=== PATIENT | female | born 2000 | race Caucasian/White ===

== ENCOUNTER 2024-12-31 07:43 | Inpatient (IN) ==
[2024-12-31] MEDS ORDERED: LIDOCAINE 1% LOCAL 20 ML VIAL INFIL PRN (07:52)
--- NOTE | 2024-12-31 08:18 | History & Physical Report ---
Date of Service December 31, 2024 Assessment & Plan (1) Encounter for induction of labor: Plan: Patient is currently stable. Will order Pitocin to induce labor. Will then AROM. Expecting vaginal delivery. Heart Assessment is Cat. 1. Will continue to monitor. Admission and Anticipated Discharge Date Admission Date: December 31, 2024 History of Present Illness Chief Complaint: Induction of Labor Primary Care Provider: [place] PCP 24 yo at 40w5d admitted for IOL for postdates. Patient had a Hall placed in by Dr. Beal on 12/30. Hall was taken out. Patient admits to contractions happening at irregular intervals, and to movement. Patient admits that a mucus plug came out when the Hall came out. Patient reports she had regular care. Patient denies any fluid loss. Denies fevers/chills/sweats, Headache, Vision changes, CP, SOB, LE pain, breast pain, dysuria. GBS neg, RH+ and Delivery Plans *Hepatitis B not immune renal pyelectasis, mild--resolved by 28 weeks. Labs Lab Results OB Labs: Blood Type A Positive 06/19/24 Antibody Screen NEGATIVE 06/19/24 Hgb 11.5 g/dl (12.0-16.0) L 10/08/24 Hct 34.4 % (37.0-47.0) L 10/08/24 MCV 90.0 fL (80.0-100.0) 06/19/24 Plt Count 197 K/uL (130-400) 06/19/24 Rubella IgG Antibody Immune (Immune) 06/19/24 Treponema pallidum Ab Negative (Negative) 10/08/24 Hep Bs Antigen Negative (Negative) 06/19/24 Hepatitis C Antibody Negative (Negative) 06/19/24 HIV 1&2 Ab/P24 Ag 4thGn Negative (Negative) 06/19/24 Glucose 1 Hr 50 gm 100 mg/dl (70-130) 10/08/24 Maternal Serum AFP 32.0 ng/mL 07/16/24 OB Optional Labs: Chlamydia trachomatis RNA Not Detected (NotDetected) 06/19/24 Neisseria gonorrhoeae RNA Not Detected (NotDetected) 06/19/24 Alpha Fetoprotein Triple Screen SEE NOTE 07/16/24 Labs Reviewed: Horizon 14-negative--mln cfdna-low risk--mln Allergies Allergy/AdvReac Type Severity Reaction Status Date / Time amoxicillin Allergy Mild Rash Verified 12/28/24 09:09 Home Medications Medication Instructions Recorded Confirmed Type prenat.vits,wendy,xtj-jcea-swdac 1 tab PO DAILY 06/14/24 12/30/24 History Patient History Surgical History (Updated 06/14/24 @ 09:59 by Meri Munoz) S/P tonsillectomy Family History (Updated 06/14/24 @ 09:55 by Meri Munoz) Other Diabetes Heart disease Pancreatic cancer Skin cancer Social History (Updated 06/14/24 @ 09:56 by Meri Munoz) Smoking Status: Never smoker Do You Dip or Chew Tobacco: No; Hx Alcohol Use: No Hx Substance Use: No marital status: marital status details: Chris (26) [phone] Current Living Situation: Spouse Current Living Situation Comment: lives with spouse, 1 dog. current occupational status: employed current occupation: Pharmacist Feels Safe at Home: Yes OB History 1st [employer] History non contributory Review of Systems as per subjective HPI Physical Exam Constitutional: WD/WN, vitals as above Respiratory: normal respiratory effort, lungs clear to auscultation Cardiovascular: Rate/Rhythm: regular rate and regular rhythm Heart Sounds: normal S1 and normal S2; no murmur Extremities: + edema (very trace L. ankle edema ); no calf tenderness Gastrointestinal (Abdomen): Percussion/Palpation: abdomen soft; abdomen nontender Skin: no rashes, warm and dry Psychiatric: Eye Contact: good eye contact Speech: normal rate/rhythm/volume of speech Thought Process: linear/logical thought process Genitourinary: cervix exam per Dr. Wang and Dr. Zacarias Results & Data Vital Signs (Past 12 Hours) Vital Signs Temp Pulse Resp BP 12/31/24 07:52 36.6 C 78 18 118/71 Monitoring External Monitor Baseline: 135 Variability: Moderate Accels: Absent Early Decels: No Variable Decels: No Late Decels: No Tocodynamometer Contractions are mild and irregular
[2024-12-31] MEDS: LACTATED RINGER'S 1,000 ML IV PRN (08:20)
[2024-12-31] MEDS: OXYTOCIN 30 UNITS/NSS 30 UNITS/500 ML BAG IV PRN ×2 (08:29→14:09)
[2024-12-31 08:37] LABS: Hematocrit (blood only) 35.4 % (37.0-47.0); Hemoglobin 11.9 g/dl (12.0-16.0); Mean Corpuscular Hemoglobin 29.8 pg (25.0-34.0); Mean Corpuscular Volume 88.7 fL (80.0-100.0); Platelet Count 178 K/uL (130-400); RDW Standard Deviation 41.7 fL (36.4-46.3); Red Blood Count 3.99 M/uL (4.20-5.40); White Blood Count 11.38 K/ul (4.8-10.8)
[2024-12-31] MEDS ORDERED: diphenhydrAMINE 50 MG/ML VIAL IV PRN (10:21)
[2024-12-31] MEDS ORDERED: fentANYL 2 MCG/ML BUPIVacaine 0.125%-NSS 100ML BAG EPI PRN (10:21)
[2024-12-31] MEDS ORDERED: NALBUPHINE HCL INJ 10 MG/ML AMP IV PRN (10:21)
[2024-12-31] MEDS ORDERED: LIDOCAINE 2% MPF LOCAL 5 ML VIAL EPI PRN (10:21)
[2024-12-31] MEDS ORDERED: NALOXONE HCL 1 MG in SODIUM CHLORIDE 0.9% 1,000 ML IV PRN (10:21)
[2024-12-31] MEDS ORDERED: ROPIVACAINE 0.5% PF 5 MG/ML 20 ML VIAL EPI PRN (10:21)
[2024-12-31] MEDS ORDERED: SODIUM CHLORIDE 0.9% PF INJ 10 ML VIAL EPI PRN (10:21)
[2024-12-31] MEDS ORDERED: NALOXONE HCL 0.4 MG/1 ML VIAL/CARP IV PRN (10:21)
[2024-12-31] MEDS ORDERED: BUPIVACAINE 0.25% PF 30 ML VIAL EPI PRN (10:21)
[2024-12-31] MEDS ORDERED: ONDANSETRON INJ 2 MG/ML 2 ML VIAL IV PRN (10:21)
--- NOTE | 2024-12-31 10:24 | Anesthesiology Consultation ---
Date of Service December 31, 2024 Assessment & Plan ASA ASA2 Proposed Anesthesia Anesthesia Type: Labor Epidural Risk / Benefits Reviewed With: PT / POA / Parent / Guardian, Accepts Plan and Informed Consent Obtained History Height/Weight Height: 5 ft 5 in Weight: 76.657 kg Allergies Allergy/AdvReac Type Severity Reaction Status Date / Time amoxicillin Allergy Mild Rash Verified 12/28/24 09:09 Medications Home Medications Medication Instructions Recorded Confirmed Last Taken prenat.vits,wendy,cek-bctr-bfrbj 1 tab PO DAILY 06/14/24 12/31/24 12/30/24 08:30 Active Medications Generic Name Dose Route Start Last Admin Trade Name Freq PRN Reason Stop Dose Admin Oxytocin 30 units in 500 mls @ 6 mls/hr 12/31/24 07:52 12/31/24 09:40 Pitocin 30 Units/Nss IV 01/03/25 07:51 0.36 units/hr .Q24H PRN 6 mls/hr Labor Induction/Augmentation Titration Protocol 0.36 UNITS/HR Lactated Ringer's 1,000 mls @ 125 mls/hr 12/31/24 07:52 12/31/24 10:10 Lr IV 01/02/25 07:51 999 mls/hr .Q8H PRN Infusion L&D Protocol Protocol Exercise / Class Metabolic Activity II 4-5 Yardwork/Stairs/Walk up hill Past Family History Family History Other Diabetes Heart disease Pancreatic cancer Skin cancer Past Surgical History Surgical History S/P tonsillectomy Past Anesthesia History No Hx of Anesthesia Complications and No Family Hx of Anesthesia Complications History of PONV No Hx of PONV and No Hx of Motion Sickness Social History Smoking Status: Never smoker Do You Dip or Chew Tobacco: No Hx Alcohol Use: No Hx Substance Use: No substance use type: does not use Review of Systems denies fever/cough/ colds/ chest pain/ SOB/ ROULA denies ROULA Physical Exam Vital Signs Last Vital Signs Temp 36.6 C 12/31/24 08:36 Pulse 60 12/31/24 10:04 Resp 18 12/31/24 08:36 BP 129/80 12/31/24 10:04 O2 Del Method Room Air 12/31/24 08:36 ENMT Mouth: no TMJ abnormality and no dentition abnormality Thyromental Distance: > or= 3.5 Finger Breadths Mallampati Class: II Neck neck extension not limited Respiratory normal respiratory effort; no respiratory distress Auscultation: lungs clear to auscultation bilaterally Cardiovascular Rate/Rhythm: regular rate and regular rhythm Neurologic moves all extremities Psychiatric Orientation: alert and oriented x 3 Testing Laboratory Results 12/31/24 08:17
[2024-12-31] MEDS: BUPIVACAINE 0.25% PF 30 ML VIAL ONE (10:51)
[2024-12-31] MEDS: fentANYL 2 MCG/ML BUPIVacaine 0.125%-NSS 100ML BAG ONE (10:51)
[2024-12-31] MEDS: LIDOCAINE 2%/EPINEPHRINE 1:200,000 20 ML PF ONE (10:51)
[2024-12-31] MEDS: SODIUM CHLORIDE 0.9% PF INJ 10 ML VIAL EPI STA (10:54)
[2024-12-31] MEDS: BUPIVACAINE 0.25% PF 30 ML VIAL EPI STA (10:54)
[2024-12-31] MEDS: LIDOCAINE 2%/EPINEPHRINE 1:200,000 20 ML PF EPI STA (10:54)
--- NOTE | 2024-12-31 13:54 | Delivery Summary ---
Vaginal Delivery Summary Date of Service December 31, 2024 Vaginal Delivery Summary VAVD Vacuum-assisted vaginal delivery for deep prolonged variable decelerations the patient had been induced with Pitocin and received epidural artificial rupture membranes as she progressed quickly to fully dilated however deep variable decelerations started to appear especially with pushing Pitocin was stopped oxygen was given to the patient. Reviewed the tracing discussed with the patient recommended vacuum as it was +2 station occiput anterior position and I did not think the baby would tolerate prolonged deep variable decelerations Bladder had just been drained by nursing for 75 cc Kiwi vacuum applied to the baby's head over 1 contraction and no pop offs the baby's head was delivered a small midline episiotomy was made to facilitate delivery once the head was delivered arm then flopped out this was not a compound presentation there was a loose nuchal cord which was passed over the baby's head gentle traction on the baby at this stage vacuum and then detached live vigorous male cord clamped Cord gases obtained cord blood obtained placenta removed with traction IV Pitocin started vaginal tear and midline episiotomy repaired with 3-0 Vicryl sponge and instrument counts correct QBL 170 mL Again to review indication for vacuum was nonreassuring heart rate tracing 1 pull no pop offs +2 station no excessive force used [facility] Vaginal Delivery [facility]
[2024-12-31 14:02] LABS: Base Excess Cord Arterial Bld -7.5 mEq/L (-9-1.8); Base Excess Cord Venous Blood -6.1 mEq/L (-7.7-1.9); CO2 Cord Arterial Blood 73 mmHg (39.1-73.5); Cord Venous Blood PO2 < 20 mmHg (14.1-43.3); HCO3 Cord Arterial Blood 24 mmol/L (19.7-28.5); O2 Saturation Cord Venous Bld < 60.0 % (<68); Oxygen Sat Cord Arterial Blood < 60.0 % (<60); PO2 Cord Arterial Blood < 20 mmHg (4.1-31.7); pH Cord Arterial Blood 7.12 (7.1-7.38)
[2024-12-31] MEDS ORDERED: HYDROCORTISONE ACETATE 25 MG SUPP PR PRN (14:13)
[2024-12-31] MEDS ORDERED: OXYTOCIN 30 UNITS/NSS 30 UNITS/500 ML BAG IV PRN (14:13)
[2024-12-31] MEDS ORDERED: ACETAMINOPHEN 325 MG TAB PO PRN (14:13)
--- NOTE | 2024-12-31 14:37 | Anesthesia Procedure Note ---
Date of Service December 31, 2024 Anesthesia Post Epidural Note Vital Signs Vital Signs: Temp Pulse Resp BP Pulse Ox O2 Del Method 36.9 C 70 16 129/65 99 Room Air 12/31/24 13:40 12/31/24 14:33 12/31/24 14:33 12/31/24 14:33 12/31/24 14:33 12/31/24 08:36 Pain Intensity Abdomen: Pain Intensity: 1 Notes Mental Status: alert / awake / arousable and participated in evaluation Nausea / Vomiting: adequately controlled Pain: adequately controlled Airway Patency, RR, SpO2: stable & adequate BP & HR: stable & adequate Hydration State: stable & adequate Neuraxial Anesthesia: was administered and sensory block resolved Anesthetic Complications: no major complications apparent and Pt Satisfied with anesthetic care Epidural: Removed without complications and With tip intact
[2024-12-31] MEDS: BENZOCAINE 20% SPRY 85 APPLN/85 GM CAN EXT PRN (16:07)
[2024-12-31] MEDS: SODIUM CHLORIDE 0.9% PF INJ 10 ML VIAL ONE (16:30)
[2024-12-31] MEDS: DIPHTHER/TETAN/PERTUS Vaccine (Tdap, Adol/Adult) 0.5mL IM ONE (16:31)
[2024-12-31] MEDS: IBUPROFEN 600 MG TAB PO PRN (17:10)
[2024-12-31] MEDS: DOCUSATE SODIUM 100 MG CAP PO SCH (21:12)
[2025-01-01 00:06] VITALS: RESP 18
[2025-01-01 06:23] LABS: Hematocrit (blood only) 30.7 % (37.0-47.0); Hemoglobin 10.5 g/dl (12.0-16.0); Mean Corpuscular Hemoglobin 30.4 pg (25.0-34.0); Mean Corpuscular Volume 89.0 fL (80.0-100.0); Platelet Count 142 K/uL (130-400); RDW Standard Deviation 42.1 fL (36.4-46.3); Red Blood Count 3.45 M/uL (4.20-5.40); White Blood Count 11.67 K/ul (4.8-10.8)
--- NOTE | 2025-01-01 06:24 | Obstetrical Progress Note ---
Date of Service January 01, 2025 Assessment & Plan (1) care and examination: Plan: Patient is post status 1 day assisted vaginal delivery with a vacuum. Patient is currently stable. Will remove catheter at around 6am. Will continue to monitor if patient is able to ambulate and void urine on their own. Admission and Anticipated Discharge Date Admission Date: December 31, 2024 Supervising Physician Co-Signing Physician Notes Patient seen with resident and agree with the above findings and plan. Urinary retention yesterday and Hall placed overnight. Hall catheter removed this morning around 6 AM. Will continue to monitor Subjective 24yo post- day 1 s/p [] vacuum Ambulation: has cath in Voiding: has cath in Passing Gas:: Yes Diet Tolerance:: regular diet Feeding Type:: breast feeding Current Pain Level:Improved cramping pain. Currently a 3-08/30. Patient states she is also sore. Resting comfortably this AM in NAD. Denies fever/chills, MACIAS, CP/palp, SOB/cough/wheezing, N/V, LE pain, breast pain/dschrg Review of Systems Review of Systems: as per subjective HPI Physical Exam Constitutional: WD/WN, vitals as above Respiratory: normal respiratory effort, lungs clear to auscultation Cardiovascular: Rate/Rhythm: regular rate and regular rhythm Heart Sounds: normal S1 and normal S2; no murmur Extremities: + edema (trace ); no calf tenderness Gastrointestinal (Abdomen): Percussion/Palpation: abdomen soft; abdomen nontender Skin: no rashes, warm and dry Psychiatric: Eye Contact: good eye contact Speech: normal rate/rhythm/vol ume of speech Thought Process: linear/logical thought process Genitourinary: uterus is firm and 1cm above umbilicus Results & Data Vital Signs (Past 12 Hours) Vital Signs Temp Pulse Resp BP Pulse Ox O2 Del Method 01/01/25 04:03 36.7 C 66 18 102/66 98 Room Air 12/31/24 23:35 36.6 C 64 18 110/71 98 Room Air 12/31/24 20:15 36.7 C 72 20 113/70 98 Room Air Laboratory Results 01/01/25 12/31/24 12/31/24 Range/Units 05:46 Unknown Unknown WBC Pending (4.8-10.8) K/ul RBC Pending (4.20-5.40) M/uL Hgb Pending (12.0-16.0) g/dl Hct Pending (37.0-47.0) % MCV Pending (80.0-100.0) fL MCH Pending (25.0-34.0) pg MCHC Pending (32.0-36.0) g/dL RDW Std Deviation (36.4-46.3) fL RDW Coeff of Anirudh (11.5-14.5) % Plt Count Pending (130-400) K/uL MPV (9.4-12.4) fL Cord ABG pH 7.12 (7.1-7.38) Cord ABG pCO2 73 (39.1-73.5) mmHg Cord ABG pO2 < 20 (4.1-31.7) mmHg Cord ABG HCO3 24 (19.7-28.5) mmol/L Cord ABG Base Excess -7.5 (-9-1.8) mEq/L Cord ABG O2 Sat < 60.0 (<60) % Cord VBG pH 7.20 (7.20-7.44) Cord VBG pCO2 59 H (30.4-57.2) mmHg Cord VBG pO2 < 20 (14.1-43.3) mmHg Cord VBG HCO3 23 (18.4-26.8) mmol/L Cord VBG Base Excess -6.1 (-7.7-1.9) mEq/L Cord VBG O2 Sat < 60.0 (<68) % Blood Gas Comments PRAKASH PRAKASH Treponema pallidum Ab (Negative) 12/31/24 Range/Units 08:17 WBC 11.38 H (4.8-10.8) K/ul RBC 3.99 L (4.20-5.40) M/uL Hgb 11.9 L (12.0-16.0) g/dl Hct 35.4 L (37.0-47.0) % MCV 88.7 (80.0-100.0) fL MCH 29.8 (25.0-34.0) pg MCHC 33.6 (32.0-36.0) g/dL RDW Std Deviation 41.7 (36.4-46.3) fL RDW Coeff of Anirudh 12.9 (11.5-14.5) % Plt Count 178 (130-400) K/uL MPV 11.9 (9.4-12.4) fL Cord ABG pH (7.1-7.38) Cord ABG pCO2 (39.1-73.5) mmHg Cord ABG pO2 (4.1-31.7) mmHg Cord ABG HCO3 (19.7-28.5) mmol/L Cord ABG Base Excess (-9-1.8) mEq/L Cord ABG O2 Sat (<60) % Cord VBG pH (7.20-7.44) Cord VBG pCO2 (30.4-57.2) mmHg Cord VBG pO2 (14.1-43.3) mmHg Cord VBG HCO3 (18.4-26.8) mmol/L Cord VBG Base Excess (-7.7-1.9) mEq/L Cord VBG O2 Sat (<68) % Blood Gas Comments Treponema pallidum Ab Negative (Negative)
[2025-01-01] MEDS: PRENATAL VITAMIN 1 TAB PO SCH (08:53)
--- NOTE | 2025-01-02 06:41 | Obstetrical Progress Note ---
Date of Service January 02, 2025 Assessment & Plan (1) care and examination: Plan: Patient is a [id number] status assisted vaginal delivery with a vacuum, post day 2. Patient is currently stable. Patient desired to go home today. Will discharge today. Admission and Anticipated Discharge Date Admission Date: December 31, 2024 Supervising Physician Co-Signing Physician Notes Resident Physician Supervision Note: I interviewed and examined the patient. Discussed with Dr. Pool and agree with findings and plan as documented in the note. Any exceptions or clarifications are listed here: PP2 s/p , doing well. STable for dc Documented By: Yadira Collins MD Subjective 24yo post- day 1 s/p [] vacuum Ambulation: Ambulating normally Voiding: Yes Passing Gas:: Yes Diet Tolerance:: regular diet Feeding Type:: breast feeding Current Pain Level: Still has some soreness and a little bit of cramping but pain has improved. Resting comfortably this AM in NAD. Patient admits to breast soreness. Denies fever/chills, MACIAS, CP/palp, SOB/cough/wheezing, N/V, LE pain, breast dschrg Review of Systems Review of Systems: as per subjective HPI Physical Exam Constitutional: WD/WN, vitals as above Respiratory: normal respiratory effort, lungs clear to auscultation Cardiovascular: Rate/Rhythm: regular rate and regular rhythm Heart Sounds: normal S1 and normal S2; no murmur Extremities: + edema (trace ); no calf tenderness Gastrointestinal (Abdomen): Percussion/Palpation: abdomen soft; abdomen nontender Skin: no rashes, warm and dry Psychiatric: Eye Contact: good eye contact Speech: normal rate/rhythm/volume of speech Thought Process: linear/logical thought process Genitourinary: uterus is firm and @ level of umbilicus Results & Data Vital Signs (Past 12 Hours) Vital Signs Temp Pulse Resp BP Pulse Ox O2 Del Method 01/01/25 23:16 36.5 C 87 18 109/69 97 Room Air 01/01/25 20:02 36.4 C L 79 18 113/73 97 Room Air Laboratory Results Lab Results 12/31/24 12/31/24 12/31/24 Range/Units 08:17 Unknown Unknown WBC 11.38 H (4.8-10.8) K/ul RBC 3.99 L (4.20-5.40) M/uL Hgb 11.9 L (12.0-16.0) g/dl Hct 35.4 L (37.0-47.0) % MCV 88.7 (80.0-100.0) fL MCH 29.8 (25.0-34.0) pg MCHC 33.6 (32.0-36.0) g/dL RDW Std Deviation 41.7 (36.4-46.3) fL RDW Coeff of Anirudh 12.9 (11.5-14.5) % Plt Count 178 (130-400) K/uL MPV 11.9 (9.4-12.4) fL Cord ABG pH 7.12 (7.1-7.38) Cord ABG pCO2 73 (39.1-73.5) mmHg Cord ABG pO2 < 20 (4.1-31.7) mmHg Cord ABG HCO3 24 (19.7-28.5) mmol/L Cord ABG Base Excess -7.5 (-9-1.8) mEq/L Cord ABG O2 Sat < 60.0 (<60) % Cord VBG pH 7.20 (7.20-7.44) Cord VBG pCO2 59 H (30.4-57.2) mmHg Cord VBG pO2 < 20 (14.1-43.3) mmHg Cord VBG HCO3 23 (18.4-26.8) mmol/L Cord VBG Base Excess -6.1 (-7.7-1.9) mEq/L Cord VBG O2 Sat < 60.0 (<68) % Blood Gas Comments PRAKASH PRAKASH Treponema pallidum Ab Negative (Negative) 01/01/25 Range/Units 05:46 WBC 11.67 H (4.8-10.8) K/ul RBC 3.45 L (4.20-5.40) M/uL Hgb 10.5 L (12.0-16.0) g/dl Hct 30.7 L (37.0-47.0) % MCV 89.0 (80.0-100.0) fL MCH 30.4 (25.0-34.0) pg MCHC 34.2 (32.0-36.0) g/dL RDW Std Deviation 42.1 (36.4-46.3) fL RDW Coeff of Anirudh 13.0 (11.5-14.5) % Plt Count 142 (130-400) K/uL MPV 12.0 (9.4-12.4) fL Cord ABG pH (7.1-7.38) Cord ABG pCO2 (39.1-73.5) mmHg Cord ABG pO2 (4.1-31.7) mmHg Cord ABG HCO3 (19.7-28.5) mmol/L Cord ABG Base Excess (-9-1.8) mEq/L Cord ABG O2 Sat (<60) % Cord VBG pH (7.20-7.44) Cord VBG pCO2 (30.4-57.2) mmHg Cord VBG pO2 (14.1-43.3) mmHg Cord VBG HCO3 (18.4-26.8) mmol/L Cord VBG Base Excess (-7.7-1.9) mEq/L Cord VBG O2 Sat (<68) % Blood Gas Comments Treponema pallidum Ab (Negative)
[2025-01-02 06:43] LABS: Hematocrit (blood only) 31.5 % (37.0-47.0); Hemoglobin 10.3 g/dl (12.0-16.0)
[2025-01-02 09:20] VITALS: BP 117/76; PULSE 82; TEMP 98.6; O2SAT 100
== END 2025-01-02 12:09 | disposition home or self-care (01) | DRG 807 ==
LOC: 4S1 07:43 → 4E2 16:15